=== PATIENT | female | born 2000 | race Caucasian/White ===

== ENCOUNTER 2022-08-27 11:05 | Emergency (ER) | payer OTHER, SELFPAY ==
--- NOTE | ~2022-08-27 | XR_ITS ---
EXAMINATION: XR chest 2V DATE: 08/27/2022 11:23 INDICATION: Chest pain. Shortness of breath. TECHNIQUE: Frontal and lateral views of the chest were obtained. COMPARISON: None. FINDINGS: The chest demonstrates clear lungs without pneumonia, pleural effusion, or pneumothorax. Th e heart size is normal. There is mild pectus excavatum. IMPRESSION: 1. No acute cardiopulmonary disease. Reviewed, dictated and finalized at location A. [employer] SALES REPRESENTATIVE
[2022-08-27 11:23] VITALS: BP 140/75; PULSE 102; RESP 18; TEMP 37.2; O2SAT 99
--- NOTE | 2022-08-27 11:38 | ECG_ITS ---
Measurements Intervals [place] Rate: 111 P: 58 OK: 127 QRS: 70 QRSD: 81 T: 44 QT: 304 QTc: 415 Interpretive Statements SINUS TACHYCARDIA INCOMPLETE RIGHT BUNDLE BRANCH BLOCK ABNORMAL ECG NO PREVIOUS ECG AVAILABLE FOR COMPARISON Electronically Signed On 08-27-2022 12:24:01 [employer] DEVEL[employer] by Christofer Rae D.O.
[2022-08-27] MEDS: IPRATROPIUM BR 0.02% INH SOLN 0.5 MG/2.5 ML VIAL INHALATION (11:46)
[2022-08-27] MEDS: ALBUTEROL SULFATE NEB 2.5 MG/3 ML INH INHALATION (11:46)
--- NOTE | 2022-08-27 12:05 | ED.ASTHMA ---
HPI - Asthma General Chief Complaint: Asthma Stated Complaint: Chest Pain Source: patient Mode of arrival: ambulatory Limitations: no limitations History of Present Illness HPI Narrative: Patient presents for evaluation of respiratory symptoms for the past few days. She initially had rhinorrhea and some sinus congestion. She also reports a productive cough of clear/green sputum, some shortness of breath and chest tightness. She states she has been diagnosed with asthma in the past. She did not have an albuterol inhaler so tried using her child's nebulizer treatment. It did not help. She thought she may still have a refill available on her albuterol so she went to the pharmacy. They did not have any refills available for her. She purchased an inhaler of epinephrine. She tried using the medication but noted worsening right sided chest tightness. She had no reports of pressure on the right side of her chest and feels like bricks laying on the chest?. No fever, chills, nausea, vomiting. She indicates she has an increase in stress in her life. She found yesterday out that her ex-boyfriend got a another female . She does smoke marijuana. 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 Related Data Allergies Allergy/AdvReac Type Severity Reaction Status Date / Time montelukast [From [facility]] Allergy Hives Verified 08/27/22 11:18 Review of Systems Review of Systems: CONSTITUTIONAL: Denies fever, chills, or sweats. EYES: Denies visual changes, redness, or discharge. ENT: Reports rhinorrhea and congestion. Denies sore throat, or otalgia. CARDIOVASCULAR: Reports chest tightness. Denies palpitations, or edema. RESPIRATORY: Reports productive cough of clear/green sputum with shortness of breath GASTROINTESTINAL: Denies abdominal pain, nausea, vomiting, or diarrhea. GENITOURINARY: Denies dysuria or hematuria. SKIN: Denies rash or itching. MUSCULOSKELETAL: Denies back pain, joint pain, or myalgia. NEUROLOGIC: Denies headache, numbness, dizziness, or weakness. PSYCHIATRIC: Reports stress and anxiety. 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 HEAD: Normocephalic, atraumatic. EYES: PERRLA and EOMI. ENT: Nares clear, no rhinorrhea or epistaxis. Mucous membranes moist. Oropharynx without tonsillar hypertrophy exudate or other lesions. Bilateral TMs pearly barrett nonbulging NECK: Supple. No adenopathy or masses. No carotid bruits or JVD CHEST: Mild wheezing noted with inspiration and expiration in bilateral lung robledo posteriorly HEART: Regular rate and rhythm. No murmur heard. Normal peripheral pulses. ABDOMEN: Soft, nontender, nondistended, normal active bowel sounds. EXTREMITIES: Normal range of motion. No edema. SKIN: Warm, dry, no rash. NEURO: No focal deficits. Alert and oriented x3. PSYCH: Anxious, tearful Course Course Emergency Course: This is a 22-year-old female who presented for evaluation of respiratory symptoms. She had some wheezing on initial exam. She was given a breathing treatment and Solu-Medrol for wheezing, and Benadryl for anxiety. CO
[2022-08-27] MEDS: diphenhydrAMINE HCl CAP 25 MG CAPSULE PO (12:10)
[2022-08-27] MEDS: methylPREDNISolone SOD SUCC 125 MG VIAL IM (12:10)
== END 2022-08-27 12:52 | disposition home or self-care (01) ==
PROVIDERS: Emergency Provider Nurse Practitioner; PCP Emergency Medicine
DX: J45.901 Unspecified asthma with (acute) exacerbation (principal); J06.9 Acute upper respiratory infection, unspecified; F41.9 Anxiety disorder, unspecified; Z20.822 Contact with and (suspected) exposure to COVID-19
CPT/HCPCS: 71046; 87426; 87804; 93005; 94640; 96372; 99213; A9270; C9803; G0463; J2930